=== PATIENT | male | born 1980 | race African-American/Black ===

== ENCOUNTER 2019-11-24 02:16 | Emergency (ER) | payer OTHER ==
[2019-11-24 02:22] VITALS: BMI 30.7
--- NOTE | 2019-11-24 02:29 | PDOC ---
History of Present Illness - General Chief Complaint: Pain Stated Complaint: ABD PAIN Time Seen by Provider: 11/24/19 02:28 History Source: Patient - History of Present Illness Initial Comments: 11/24/19 03:39 39-year-old male complaining of right flank pain radiating to the right groin since 12 AM. Patient reports that patient woke up with pain and the pain woke him out of his sleep. Denies urinary symptoms, testicular swelling, fever/chills. Patient report nausea and vomiting. At home. Patient reports that he has been seeing a urologist due to blood in urine during routine exam. Patient had an outpatient CAT scan which is pending results. Past History - Medical History Allergies/Adverse Reactions: Allergies Allergy/AdvReac Type Severity Reaction Status Date / Time No Known Allergies Allergy Verified 11/24/19 02:22 Home Medications: Ambulatory Orders Ibuprofen 600 mg PO QID PRN #20 tablet 11/24/19 Oxycodone HCl/Acetaminophen [Percocet 5-325 mg Tablet] 1 tab PO Q6H PRN #8 tablet MDD 4 11/24/19 Tamsulosin HCl [Flomax] 0.4 mg PO DAILY #14 cap.er.24h 11/24/19 COPD: No - Surgical History Abdominal Surgery: Yes (HERNIA) - Psycho-Social/Smoking History Smoking History: Never smoked - Substance Abuse Hx (Audit-C & DAST Scrn) How often the patient has a drink containing alcohol: Monthly or less Score: In Men: 4 or > Positive; In Women: 3 or > Positive: 1 Screen Result (Pos requires Nsg. Audit-10AR): Negative In the last yr the pt used illegal drug/Rx for NonMed reason: No Score: Yes response is considered Positive: 0 Screen Result (Positive result requires Nsg. DAST-10): Negative Review of Systems - Review of Systems Able to Perform ROS?: Yes Is the patient limited Citizen Of [place] proficient: No Constitutional: No: Symptoms Reported, See HPI, Chills, Diaphoresis, Fever, Loss of Appetite, Malaise, Night Sweats, Weakness, Weight Stable, Unintentional Wgt. Loss, Unexplained wgt Loss, Other ABD/GI: Yes: Nausea, Vomiting, Abdominal cramping : Yes: Flank Pain. No: Symptoms Reported, See HPI, Burning, Dysuria, Discharge, Frequency, Hematuria, Incontinence, Pain, Urgency, Testicular Mass, Testicular Swelling, Lesions, Testicular Pain, Other Musculoskeletal: Yes: Back Pain. No: Symptoms Reported, See HPI, Gout, Joint Pain, Joint Swelling, Muscle Pain, Muscle Weakness, Neck Pain, Joint Stiffness, Other *Physical Exam - Vital Signs Last Vital Signs Temp Pulse Resp BP Pulse Ox 99.1 F 67 18 146/87 99 11/24/19 02:20 11/24/19 02:20 11/24/19 02:20 11/24/19 02:20 11/24/19 02:20 - Physical Exam General Appearance: Yes: Appropriately Dressed Respiratory/Chest: positive: Lungs Clear, Normal Breath Sounds Cardiovascular: positive: Regular Rate Gastrointestinal/Abdominal: positive: Normal Bowel Sounds, Tender (RLQ), Soft Male Genitalia: positive: normal genitalia, CVAT. negative: testicular tenderness, testicular mass, epididymus tender Extremity: positive: Normal Capillary Refill, Normal Inspection, Normal Range of Motion Integumentary: positive: Normal Color, Dry, Warm Neurologic: positive: Fully Oriented, Alert, Normal Mood/Affect ED Treatment Course - LABORATORY CBC & Chemistry Diagram: 11/24/19 02:30 11/24/19 02:30 ED Progress Note - Progress Note Progress Note: 11/24/19 05:04 A: right obstructed kidney stone P: cbc cmp ua urine culture IVF pain control flomax 11/24/19 05:22 pain is somewhat relieved. will d/c home with ibuprofen , flomax and percocet. strict return precautions were reviewed with patient. patient verbalized understanding. Medical Decision Making - Medical Decision Making 11/24/19 04:30 Positive for a 6.2 mm x 7.9 mm obstructing proximal right ureteral stone, near the right ureteral pelvic junction.. This causes moderate right hydronephrosis/hydroureter and perinephric stranding. No left urinary tract stone or obstruction.The appendix is visualized. Negative for appendicitis. Possibly some minimal sludge in the lumen. Otherwise normal appendix. 11/24/19 05:04 Discharge - Discharge Information Problems reviewed: Yes Clinical Impression/Diagnosis: Right flank pain, Kidney stone on right side Disposition: HOME - Additional Discharge Information Prescriptions: Tamsulosin HCl [Flomax] 0.4 mg PO DAILY #14 cap.er.24h Ibuprofen 600 mg PO QID PRN #20 tablet PRN Reason: Pain Oxycodone HCl/Acetaminophen [Percocet 5-325 mg Tablet] 1 tab PO Q6H PRN #8 tablet MDD 4 PRN Reason: Pain - Follow up/Referral Referrals: Yandel Eckert MD [Primary Care Provider] - - Patient Discharge Instructions Patient Printed Discharge Instructions: DI for Kidney Stones Additional Instructions: Drink plenty of fluids Take Flomax as prescribed Take ibuprofen every 6 hours as needed for urpr-my-hvjjrupz pain Take Percocet every 6 hours as needed for moderate pain Follow-up with a urologist as soon as possible Return to the emergency room if symptoms worsen - Post Discharge Activity Work/Back to School Note: Back to Work
[2019-11-24] MEDS ORDERED: ACETAMINOPHEN 1000 MG/100 ML VIAL (NON FORMULARY) IVPB ONE (02:35)
[2019-11-24] MEDS ORDERED: SODIUM CHLORIDE 1,000 ML IV STA (02:35)
--- NOTE | 2019-11-24 02:38 | PDOC ---
*Physical Exam - Vital Signs Last Vital Signs Temp Pulse Resp BP Pulse Ox 99.1 F 67 18 146/87 99 11/24/19 02:20 11/24/19 02:20 11/24/19 02:20 11/24/19 02:20 11/24/19 02:20 ED Treatment Course - LABORATORY CBC & Chemistry Diagram: 11/24/19 02:30 11/24/19 02:30 Medical Decision Making - Medical Decision Making 11/24/19 02:37 Patient seen by the advanced practice provider under my supervision. Ancillary testing reviewed as necessary. I agree with plan as outlined by the advanced practice provider. Discharge - Discharge Information Problems reviewed: Yes Clinical Impression/Diagnosis: Right flank pain, Kidney stone on right side Condition: Stable Disposition: HOME - Additional Discharge Information Prescriptions: Tamsulosin HCl [Flomax] 0.4 mg PO DAILY #14 cap.er.24h Ibuprofen 600 mg PO QID PRN #20 tablet PRN Reason: Pain Oxycodone HCl/Acetaminophen [Percocet 5-325 mg Tablet] 1 tab PO Q6H PRN #8 tablet MDD 4 PRN Reason: Pain - Follow up/Referral Referrals: Yandel Eckert MD [Primary Care Provider] - - Patient Discharge Instructions Patient Printed Discharge Instructions: DI for Kidney Stones Additional Instructions: Drink plenty of fluids Take Flomax as prescribed Take ibuprofen every 6 hours as needed for [id number] pain Take Percocet every 6 hours as needed for moderate pain Follow-up with a urologist as soon as possible Return to the emergency room if symptoms worsen - Post Discharge Activity Work/Back to School Note: Back to Work
[2019-11-24] MEDS ORDERED: ACETAMINOPHEN INJECTION 100 ML IVPB ONE (03:01)
[2019-11-24 03:05] LABS: BASO % 0.6 % (0-2.0); EOS % 0.4 % (0-4.5); HEMATOCRIT 39.7 % (35.4-49); HEMOGLOBIN 13.4 GM/dL (11.7-16.9); MCH 32.2 pg (25.7-33.7); MCHC 33.9 g/dl (32.0-35.9); MEAN CELL VOLUME 95.1 fl (80-96); MEAN PLT VOLUME 8.7 fl (7.5-11.1); MONO % 8.1 % (3.8-10.2); NEUT % 77.9 % (42.8-82.8); PLATELET COUNT 274 K/MM3 (134-434); RBC 4.17 M/mm3 (4.00-5.60); RDW 13.8 % (11.9-15.9); WHITE BLOOD COUNT 8.5 K/mm3 (4.0-10.0)
[2019-11-24 03:28] LABS: ALBUMIN 3.8 g/dl (3.4-5.0); BILIRUBIN,TOTAL 0.2 mg/dL (0.2-1); BLOOD UREA NITROGEN 16.5 mg/dL (7-18); CALCIUM 9.3 mg/dL (8.5-10.1); CREATININE 1.4 mg/dL (0.55-1.3); POTASSIUM 3.9 mmol/L (3.5-5.1); TOT PROT 7.3 g/dl (6.4-8.2)
[2019-11-24 03:30] LABS: EPI CELLS 4 /uL (0-25.1); HYALINE CASTS 1 /uL (0-3.1); PH,URINE 5.5 (5.0-8.0); URINE APPEARANCE CLEAR; URINE BACTERIA 7 /uL (0-1359); URINE BILIRUBIN NEGATIVE (NEGATIVE); URINE COLOR YELLOW; URINE GLUCOSE (UA) NEGATIVE (NEGATIVE); URINE KETONE NEGATIVE (NEGATIVE); URINE LEUK ESTERASE NEGATIVE (NEGATIVE); URINE NITRITE NEGATIVE (NEGATIVE); URINE PROTEIN 1+ (NEGATIVE); URINE RBC 74 /uL (0-23.9); URINE UROBILINOGEN 0.2 mg/dL (0.2-1.0); URINE WBC 18 /uL (0-25.8)
[2019-11-24] MEDS ORDERED: TAMSULOSIN HCL 0.4 MG CAP PO ONE (04:31)
[2019-11-24] MEDS ORDERED: KETOROLAC TROMETHAMINE 30 MG/1 ML VIAL IVPUSH ONE (04:31)
[2019-11-24] MEDS ORDERED: TAMSULOSIN HCL 0.4 MG CAP ONE (04:44)
[2019-11-24] MEDS ORDERED: KETOROLAC TROMETHAMINE 30 MG/1 ML VIAL ONE (04:44)
[2019-11-24] MEDS ORDERED: SODIUM CHLORIDE 1,000 ML IV SCH (04:45)
[2019-11-24 05:33] VITALS: BP 132/74; PULSE 64; TEMP 98.4
== END 2019-11-24 05:34 | disposition home or self-care (01) ==
LOC: JER 02:16
PROC: 3E033GC Introduction of Other Therapeutic Substance into Peripheral Vein, Percutaneous Approach (ICD-10-PCS; principal; 2019-11-24)
PROC: 3E0337Z Introduction of Electrolytic and Water Balance Substance into Peripheral Vein, Percutaneous Approach (ICD-10-PCS; principal; 2019-11-24)
DX: N20.0 Calculus of kidney (principal)
CPT/HCPCS: 36415; 74176-TC; 80053; 81003; 85025; 87086; 99285-25; J0131